=== PATIENT | female | born 1950 | race Caucasian/White ===

== ENCOUNTER 2018-03-26 16:13 | Emergency (ER) | payer MEDICARE, OTHER ==
[2018-03-26] MEDS ORDERED: Ibuprofen 200 MG TAB ONE (18:45)
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
== END 2018-03-26 20:03 | disposition home or self-care (01) ==
LOC: ERS 16:13
DX: M54.2 Cervicalgia (principal); R51 Headache; I10 Essential (primary) hypertension; V89.2XXA Person injured in unspecified motor-vehicle accident, traffic, initial encounter
CPT/HCPCS: 70450; 71045; 72125